=== PATIENT | female | born 1955 | race Caucasian/White ===

== ENCOUNTER → 2019-04-28 | Outpatient (CLI) | payer BC ==
--- NOTE | 2019-04-28 13:20 | REP ---
MR Brain without contrast HISTORY: Tension headache COMPARISON : None Several punctate areas of increased signal intensity on T2-weighted images are present in the periventricular and subcortical white matter. This represents small-vessel ischemic disease. There is no intraparenchymal hemorrhage, infarct, mass or midline shift. The ventricular system and cortical sulci are dilated consistent with minimal volume loss. There is no extra cerebral collection. The sinuses are clear. IMPRESSION: 1. Minimal small vessel ischemic disease. 2. Minimal volume loss. Electronically Signed by Nayan Hamilton MD 04/28/2019 01:11 P
--- NOTE | 2019-04-28 13:55 | REP ---
MR CERVICAL SPINE WITHOUT CONTRAST: HISTORY: Cervicalgia. The patient is status post C3 to C7 anterior spinal fusion. Metal hardware and bone graft material are present. Posterior osteophytes are present at the C3-4 level. There is minimal spinal cord compression. The C3 neural foramina are patent. Posterior osteophytes are present at the C4-5 level. There is moderate effacement of the thecal sac without spinal cord compression. The C4 neural foramina are patent. Posterior osteophytes are present at the C5-6 level. There is minimal spinal cord compression. The C5 neural foramina are patent. Posterior osteophytes are present at the C6-7 level. There is moderate effacement of the thecal sac without spinal cord compression. The C6 neural foramina are patent. A disc bulge is present at the C7-T1 level. There is moderate effacement of the thecal sac without spinal cord compression. Bilateral uncinate process and facet hypertrophy are present. These findings produce mild narrowing of the C7 neural foramina. Heterogeneous increased signal intensity on T2-weighted images is present in the spinal cord at the C6-7 level. The spinal cord is small in size. This represents myelomalacia. A focal area of decreased signal intensity on T2-weighted images is present in the spinal cord at the C7-T1 level. This most likely represents hemosiderin. A 1.5 mm focus of increased signal intensity on T2-weighted images is present in the spinal cord at the T1 level. This represents cystic myelomalacia or a very small syrinx. Normal signal intensity is present in the visualized vertebral bodies. There is no subluxation. IMPRESSION: 1. The patient is status post C3 to C7 anterior spinal fusion. There is anatomic alignment. 2. There is cervical spondylosis at the C3-4 through C7-T1 levels most significant at the C3-4 and C5-6 levels where there is minimal spinal cord compression. 3. There is focal myelomalacia at the C6-7 level. A small focus of increased signal intensity on T2-weighted images is present at the T1 level. This represents cystic myelomalacia or a very small syrinx. Electronically Signed by Nayan Hamilton MD 04/28/2019 02:02 P
== END ==
LOC: M RAD 10:34
PROVIDERS: ATTEND Psychiatry & Neurology Neurology
DX: R51 Headache (principal); M54.2 Cervicalgia

== ENCOUNTER 2019-06-27 18:24 | Emergency (ER) | payer BC ==
[~2019-06-27] VITALS: Ht 154.9 cm; Wt 84.1 kg
[2019-06-27] MEDS ORDERED: BUPR75TA5 PO (18:47)
[2019-06-27] MEDS ORDERED: BACL10TA2 PO (18:47)
[2019-06-27] MEDS ORDERED: SENN1TAB8 PO (18:47)
[2019-06-27] MEDS ORDERED: CYMB60CA3 PO (18:47)
[2019-06-27] MEDS ORDERED: NITR2OI TOP (18:47)
[2019-06-27] MEDS ORDERED: MELA5CAP2 PO (18:47)
[2019-06-27] MEDS ORDERED: MIDO5TA PO (18:47)
[2019-06-27] MEDS ORDERED: PEPC1TAB5 PO (18:47)
[2019-06-27] MEDS ORDERED: D 101000 PO (18:47)
[2019-06-27] MEDS ORDERED: FLON1SPR NARES (18:47)
[2019-06-27] MEDS ORDERED: LORA-674 PO (18:47)
[2019-06-27] MEDS ORDERED: ATIV1TAB10 PO (18:47)
[2019-06-27] MEDS ORDERED: TROS20TA3 PO (18:47)
[2019-06-27] MEDS ORDERED: MYRB25TA PO (18:47)
[2019-06-27] MEDS ORDERED: BACL1TAB8 PO (18:47)
[2019-06-27] MEDS ORDERED: ENUL10SO PO (18:47)
[2019-06-27 21:24] LABS: BASO # 0.1 10^3/uL (0.0-0.2); BASO % 0.6 % (0.0-1.0); EOS # 0.3 10^3/uL (0.0-0.50); EOS % 2.2 % (0.0-3.0); HEMATOCRIT 43.1 % (36.0-47.0); HEMOGLOBIN 14.2 g/dl (12.0-15.5); LYMPH # 2.7 10^3/uL (1.5-4.5); LYMPH % 21.4 % (24.0-44.0); MEAN CORPUSCULAR HEMOGLOBIN 31.9 pg (27.0-33.0); MEAN CORPUSCULAR HGB CONC 32.9 g/dl (32.0-36.5); MEAN CORPUSCULAR VOLUME 96.9 fl (80.0-96.0); NEUTROPHILS # 8.5 10^3/uL (1.8-7.7); NEUTROPHILS % 67.4 % (36.0-66.0); PLATELET COUNT, AUTOMATED 363 10^3/uL (150-450); RED BLOOD COUNT 4.45 10^6/uL (4.00-5.40); WHITE BLOOD COUNT 12.6 10^3/uL (4.0-10.0)
[2019-06-27] MEDS ORDERED: ISOVUE-370 76% 100ML VIAL (Q9967) As Ordered ONE (21:31)
[2019-06-27 21:39] LABS: ALBUMIN 3.7 GM/DL (3.2-5.2); ALT/SGPT 25 U/L (12-78); BILIRUBIN,DIRECT < 0.1 MG/DL (0.0-0.2); BILIRUBIN,TOTAL 0.2 MG/DL (0.2-1.0); TOTAL PROTEIN 7.4 GM/DL (6.4-8.2)
--- NOTE | 2019-06-27 22:31 | REPVR ---
EXAM: CT Abdomen and Pelvis With Contrast EXAM DATE/TIME: 06/27/2019 10:05 PM CLINICAL HISTORY: 63 years old, female; Constipation; Prior surgery; Additional info: No bm, ileus vs obs TECHNIQUE: Imaging protocol: Axial computed tomography images of the abdomen and pelvis with intravenous contrast. Coronal and sagittal reformatted images were created and reviewed. Radiation optimization: All CT scans at this facility use at least one of these dose optimization techniques: automated exposure control; mA and/or kV adjustment per patient size (includes targeted exams where dose is matched to clinical indication); or iterative reconstruction. Contrast material: ISOVUE 370;Contrast volume: 100 ml;Contrast route: IV; COMPARISON: CR ABDOMEN (MIN 2 VIEW) 06/27/2019 7:33 PM FINDINGS: Lungs: Minimal bibasilar fibro-atelectatic change, greatest in the lower lobes. Liver: Normal. No mass. Gallbladder and bile ducts: Status post cholecystectomy. Mild biliary dilation which is attributed to prior cholecystectomy and is likely physiologic. CBD measures 11 mm and tapers to the ampulla. Pancreas: Normal. No ductal dilation. Spleen: Normal. No splenomegaly. Adrenals: Normal. No mass. Kidneys and ureters: Normal. No hydronephrosis. Stomach and bowel: Moderate colonic stool and gas which is proximally. Slight wall thickening and pericolonic induration of the distal sigmoid and rectum with slight distention of the rectum measuring 6.2 cm in its lateral dimension. Appendix: A normal appendix is seen. Intraperitoneal space: Normal. No free air. No significant fluid collection. Vasculature: Normal. No abdominal aortic aneurysm. Lymph nodes: Normal. No enlarged lymph nodes. Bladder: Unremarkable as visualized. Reproductive: Unremarkable as visualized. Bones/joints: The sigmoid is mildly elongated extending cephalad to the L1-L2 level and nearly to the stomach. Soft tissues: Unremarkable. IMPRESSION: 1. Slight wall thickening and surrounding induration of the distal sigmoid and rectum suggesting nonspecific distal colitis or proctitis. 2. Mildly elongated or redundant sigmoid which extends cephalad nearly to the stomach and is adjacent to the transverse colon. 3. Status post cholecystectomy. Electronically signed by: Jase Pa On 06/27/2019 22:31:24 PM
[2019-06-27] MEDS ORDERED: CIPROFLOXACIN 500 MG TAB PO ONE (23:30)
[2019-06-27] MEDS ORDERED: metroNIDAZOLE (FLAGYL) 500 MG TAB PO ONE (23:30)
[2019-06-28] MEDS ORDERED: FLAG500T PO (00:04)
[2019-06-28] MEDS ORDERED: CIPR-249 PO (00:04)
[2019-06-28 00:22] VITALS: BP 125/81
--- NOTE | 2019-06-28 09:15 | REP ---
REASON: Abdominal pain and clinical constipation. AP and cross table lateral views were obtained. Multiple gas filled small bowel loops are present there is content seen throughout the colon. Gas and stool is seen in the rectum. The organ silhouettes are obscured. There is no evidence of free air. IMPRESSION:Findings suggestive of an ileus. There is a large amount of colonic content. Which could be correlated clinically with constipation. Electronically Signed by Eliud Lang DO 06/28/2019 11:21 A
--- NOTE | 2019-06-28 15:00 | ED PDOC ---
Post-Departure Follow-Up dr beckett faxed formal report of ct abd/p for fu Obed Younger MD Jun 28, 2019 15:00
== END 2019-06-28 00:30 | disposition home or self-care (01) ==
LOC: M ED 18:24
DX: K52.9 Noninfective gastroenteritis and colitis, unspecified (principal); K56.7 Ileus, unspecified; K56.41 Fecal impaction; G90.4 Autonomic dysreflexia; K21.9 Gastro-esophageal reflux disease without esophagitis; I95.9 Hypotension, unspecified; F41.9 Anxiety disorder, unspecified; F32.9 Major depressive disorder, single episode, unspecified; E04.1 Nontoxic single thyroid nodule; Z88.0 Allergy status to penicillin; Z88.8 Allergy status to other drugs, medicaments and biological substances; Z91.048 Other nonmedicinal substance allergy status; Z79.899 Other long term (current) drug therapy
CPT/HCPCS: 74019; 74177; 80047; 80076; 81001; 85025; 99284; Q9967

== ENCOUNTER → 2019-08-29 | Outpatient (REF) ==
[~2019-08-29] MED LIST: ATIV1TAB10 PO; BACL10TA2 PO; BACL1TAB8 PO; BENA25CA4 PO; BUPR75TA5 PO; CIPR-249 PO; CYMB60CA3 PO; D 101000 PO; ENUL10SO PO; FLAG500T PO; FLON1SPR NARES; LORA-674 PO; MELA5CAP2 PO; MIDO5TA PO; MYRB25TA PO; NITR2OI TOP; PEPC1TAB5 PO; PRED20TA PO; SENN1TAB8 PO; TROS20TA3 PO
[2019-08-29 18:15] LABS: COLLAGEN EPINEPHRINE 83 SECONDS (74-162)
== END ==
LOC: M LAB REF 13:52
DX: R23.3 Spontaneous ecchymoses (principal)

== ENCOUNTER 2019-09-05 21:34 | Emergency (ER) | payer BC, MEDICAID ==
[~2019-09-05] VITALS: Ht 154.9 cm; Wt 86.4 kg
[~2019-09-05 21:34] MED LIST changes: -BENA25CA4 PO; -PRED20TA PO
[2019-09-05] MEDS ORDERED: LORazepam 2 MG/ML VIAL (J2060) IV STA (21:49)
[2019-09-05] MEDS ORDERED: methylPREDNISolone INJ 125 MG/2 ML VIAL (J2930) IV ONE (22:00)
[2019-09-05] MEDS ORDERED: diphenhydrAMINE INJ 50MG/ML VIAL (J1200) IV ONE (22:00)
[2019-09-05] MEDS ORDERED: NS 1,000 ML IV ONE (22:00)
[2019-09-05] MEDS ORDERED: LABETALOL HCL 100 MG/20 ML VIAL IV STA (22:52)
[2019-09-05] MEDS ORDERED: METOCLOPRAMIDE INJ 10MG/2ML VIAL (J2765) IV ONE (23:00)
[2019-09-05] MEDS ORDERED: KETOROLAC 30 MG/ML VIAL (J1885) IV ONE (23:00)
[2019-09-05 23:06] VITALS: BP 170/110
[2019-09-05] MEDS ORDERED: MORPHINE 4 MG/ML 1ML VIAL/SYRINGE (J2270) IV ONE (23:45)
[2019-09-05] MEDS ORDERED: CIPR-249 PO (23:50)
[2019-09-05] MEDS ORDERED: PRED20TA PO (23:50)
[2019-09-05] MEDS ORDERED: BENA25CA4 PO (23:50)
[2019-09-06] MEDS ORDERED: hydrOXYzine 25 MG TAB PO ONE
[2019-09-06 01:17] VITALS: BP 180/94
== END 2019-09-06 01:32 | disposition home or self-care (01) ==
LOC: M ED 21:34
DX: R21 Rash and other nonspecific skin eruption (principal); T36.8X5A Adverse effect of other systemic antibiotics, initial encounter; X58.XXXA Exposure to other specified factors, initial encounter; Y92.89 Other specified places as the place of occurrence of the external cause; I95.9 Hypotension, unspecified; G90.4 Autonomic dysreflexia; K21.9 Gastro-esophageal reflux disease without esophagitis; Z79.899 Other long term (current) drug therapy; Z88.0 Allergy status to penicillin; Z88.8 Allergy status to other drugs, medicaments and biological substances; Z91.048 Other nonmedicinal substance allergy status
CPT/HCPCS: 94760; 96361; 96374; 96375; 99284; J1200; J1885; J2060; J2270; J2765; J2930

== ENCOUNTER → 2019-09-13 | Outpatient (CLI) | payer BC, MEDICAID ==
[~2019-09-13] MED LIST changes: +BENA25CA4 PO; +PRED20TA PO
--- NOTE | 2019-09-14 12:51 | REP ---
Clinical: Abdominal pain. Technique: Two supine views of the abdomen and pelvis. Findings: The bowel gas pattern is relatively nonspecific although mild fecal stasis and possible constipation cannot be excluded. Evidence of prior cholecystectomy. Skeletal structures demonstrate age-related changes. Impression: Possible mild fecal stasis and constipation Electronically Signed by Pb Leos MD 09/14/2019 12:42 P
== END ==
LOC: M RAD 14:39
PROVIDERS: ATTEND Neurological Surgery
DX: K59.2 Neurogenic bowel, not elsewhere classified (principal)

== ENCOUNTER → 2019-09-20 | Outpatient (CLI) | payer BC, MEDICAID ==
--- NOTE | 2019-09-25 15:13 | REP ---
THYROID SONOGRAPHY: HISTORY: Multinodular goiter. Comparison thyroid sonography is retrieved from July 25, 2018 done at an outside facility. I do not have a report of this prior study. SONOGRAPHIC FINDINGS: Thyroid isthmus is 0.6 cm thick. Right lobe dimensions are 6.7 x 2.5 x 2.6 cm. The left thyroid lobe measures 6.6 x 2.1 x 2.2 cm. There is a solid complex nodule in each lobe of the thyroid. On the right this nodule measures 4.7 x 2.4 x 3.9 cm. The nodule posteriorly in the left mid lobe measures 5.5 x 1.9 x 2.1 cm. The left-sided nodule appears to be larger compared to the prior sonographic images. Prior study showed a 1 cm hypoechoic complex cystic nodule just to the right of midline adjacent to the isthmus. This is not seen on today's study. The overall dimensions of the thyroid gland and isthmus are similar to the prior imaging study. No extrathyroidal mass or adenopathy is observed. IMPRESSION: There is a large nodule in the left lobe which appears to be larger than on the prior study. There is also a large right-sided nodule which appears essentially unchanged. These are solid predominantly by ultrasound. Findings consistent with multinodular goiter. Electronically Signed by Cabrera Rangel MD 09/25/2019 03:33 P
== END ==
LOC: M RAD 12:48
PROVIDERS: ATTEND Internal Medicine
DX: E04.2 Nontoxic multinodular goiter (principal)

== ENCOUNTER → 2019-10-09 | Outpatient (CLI) | payer BC, MEDICAID ==
[2019-10-09 17:50] LABS: APPEARANCE, URINE HAZY (CLEAR); BACTERIA, URINE AUTO 3+ (NEGATIVE); BILIRUBIN, URINE AUTO NEGATIVE (NEGATIVE); BLOOD, URINE BLOOD 2+ (NEGATIVE); COLOR, URINE STRAW (YELLOW); GLUCOSE, URINE (UA) AUTO 1+ mg/dL (NEGATIVE); KETONE, URINE AUTO NEGATIVE (NEGATIVE); LEUKOCYTE ESTERASE, URINE AUTO 2+ (NEGATIVE); MUCUS, URINE SMALL (NEGATIVE); NITRITE, URINE AUTO NEGATIVE (NEGATIVE); PROTEIN, URINE AUTO NEGATIVE (NEGATIVE); RBC, URINE AUTO 1 /HPF (0-3); SPECIFIC GRAVITY URINE AUTO 1.003 (1.002-1.035); SQUAMOUS EPITHELIAL CELL UR AU 0 /HPF (0-6); UROBILINOGEN, URINE AUTO 0.2 mg/dL (0.0-2.0); WBC, URINE AUTO 40 /HPF (0-3)
== END ==
LOC: M LAB 16:45
DX: N31.9 Neuromuscular dysfunction of bladder, unspecified (principal)

== ENCOUNTER → 2020-08-05 | Outpatient (CLI) | payer MEDICARE, BC, MEDICAID ==
[~2020-08-05] MED LIST changes: +SENN-80 PO; -SENN1TAB8 PO
--- NOTE | 2020-08-19 17:21 | REP ---
THYROID SONOGRAPHY HISTORY: Multinodular goiter. COMPARISON: 09/20/2019. FINDINGS: Thyroid isthmus is 0.8 cm thick. Right lobe dimensions by todays sonography are 6.5 x 1.8 x 2.7 cm. Left thyroid lobe measurements are 6.6 x 2.5 x 1.9 cm. These measurements are essentially unchanged. Solid nodules are seen bilaterally. The largest nodule is in the lower pole of the right thyroid lobe measures 4.5 x 2.6 x 2.8 cm today. This is unchanged. Adjacent to this, there is a 2.2 x 1.3 x 2.4 cm solid nodule. In the lower pole on the left, there is a predominantly solid nodule measuring 4.7 x 1.7 x 2.7 cm. This is felt to be essentially unchanged as well. IMPRESSION: Multinodular goiter. MTDD
== END ==
LOC: M RAD 13:00
PROVIDERS: ATTEND Internal Medicine
DX: E04.2 Nontoxic multinodular goiter (principal)

== ENCOUNTER → 2020-09-25 | Outpatient (CLI) | payer MEDICARE, BC, MEDICAID ==
[~2020-09-25] MED LIST changes: +PROHANCE 279.3MG/ML 15ML VIAL As Ordered ONE; +PROHANCE 279.3MG/ML 5ML VIAL As Ordered ONE
--- NOTE | 2020-09-26 09:32 | REP ---
INDICATION: TETRAPLEGIA. COMPARISON: Comparison MRI study is from April 28, 2019.. TECHNIQUE: Sagittal and axial T1 and T2-weighted scans are acquired in the usual fashion with and without fat saturation. Sequences include spin echo, turbo spin-echo, and STIR imaging sequences. Gadolinium enhancement dose is 18 mL of intravenous ProHance. FINDINGS: There is a somewhat heterogeneous goiter again noted unchanged. The patient is status post ventral discectomy and fusion plating C3 through C7. Magnetic field susceptibility artifact is seen emanating from the fusion hardware through the ventral aspect of the vertebral column at these levels. There is no evidence of disc protrusion or cord compression at C2-3. No foraminal narrowing is seen at C2-3. At C3-4, there is facet hypertrophy. There is evidence of low T1 low T2 signal intensity material compressing the ventral aspect of the cord at the C3-4 and along the C4 vertebral body consistent with a disc osteophyte complex. This is unchanged from the 2019 prior study. Cord signal intensity is normal at this level. At C4-C5, there is no evidence of cord compression or foraminal narrowing. At C5-C6, there is similar disc osteophyte complex compressing the ventral margin of the cord. It is possible and some of this apparent cord compression may be field susceptibility artifact and signal dropout from the metallic fusion hardware. There is central canal stenosis at C5-6, midline AP dimension of the thecal sac at this level is 6 mm. No abnormal cord signal is seen at this level. The appearance of this disc osteophyte complex is unchanged from April 28, 2019. At C6-C7, there is evidence of a ventral cord compression from disc osteophyte complex indenting the ventral margin of the cord. This appears to be unchanged. This is just above the cord lesion noted previously. Abnormal intramedullary cord signal intensity is noted in the right side of the cervical cord consistent with myelomalacia at the C6 vertebral body. This is not visible previously. At and below the C6-7 disc level, there is extensive T2 hyperintense signal throughout the substance of the cord and there is evidence of marked focal cord atrophy at this level. The abnormal signal intensity extends over a craniocaudal span of 15 mm today, previously 12 mm. The bottom of this severe myelomalacia lesion is at mid C7 as before. There is ligamentum flavum hypertrophy contributing to canal narrowing bilaterally at C6-7. No disc protrusion or cord compression is seen at C7-T1. The previously noted small focal intramedullary hyperintensity in the T1 vertebral body is not seen today. Post gadolinium enhanced T1 weighted scans show no intrasubstance gadolinium enhancement within the cord. No other significant gadolinium enhancement is apparent. IMPRESSION: Severe focal myelomalacia and focal cord atrophy at the C6-7 level. The craniocaudal span of the T2 hyperintense lesion in the intramedullary substance of the cord is a bit more extensive. There is a new area of increased signal intensity in the right side of the cervical cord at C6. There does not appear to be evidence of increased cord compression at any level. Status post extensive cervical spine ventral fusion C3 through C7. <Electronically signed by David Rangel > 09/26/20 0922
--- NOTE | 2020-09-26 09:42 | REP ---
INDICATION: TETRAPLEGIA. COMPARISON: None. TECHNIQUE: Sagittal and axial T1 and T2-weighted scans are acquired in the usual fashion with and without fat saturation. Sequences include spin echo, turbo spin-echo, and STIR imaging sequences. 18 mL of intravenous ProHance was administered and post gadolinium enhanced imaging is acquired. FINDINGS: Thoracic vertebral body heights are preserved. There is a minimal scoliotic curvature. Alignment is otherwise normal. Magnetic field susceptibility artifact is seen at the top edge of the imaging field at C7 from fusion hardware. A extensive focal cord atrophy/myelomalacia lesion is seen at C6-7. The thoracic spinal cord is normal in course and caliber and signal intensity on T1 and T2 weighted scans. No thoracic cord compression is seen. There is moderate degenerative disc spurring along the anterior margin of the thoracic canal. These osteophytes are predominantly right-sided. There is right posterior disc bulge at at T8-T9. This does not contact the cord. No other thoracic disc protrusion is appreciated. No evidence of neural foraminal narrowing is seen. There is no focus of intramedullary and contrast enhancement in the thoracic cord. Postcontrast T1 weighted fat sat images show no significant gadolinium enhancement. IMPRESSION: Diffuse degenerative disc disease with anterior osteophyte formation. No cord compressive lesion or foraminal ladder narrowing seen. The thoracic cord is normal in course and caliber. <Electronically signed by David Rangel > 09/26/20 1979
== END ==
LOC: M RAD 15:20
DX: M62.830 Muscle spasm of back (principal)
CPT/HCPCS: 72156; 72157; A9576

== ENCOUNTER → 2021-06-12 | Outpatient (CLI) | payer MEDICARE, MEDICAID ==
[~2021-06-12] MED LIST changes: -PROHANCE 279.3MG/ML 15ML VIAL As Ordered ONE; -PROHANCE 279.3MG/ML 5ML VIAL As Ordered ONE
--- NOTE | 2021-06-12 15:26 | REP ---
INDICATION: MULTI NODULAR GOITER. COMPARISON: 08/05/2020. TECHNIQUE: Real-time sonographic evaluation of thyroid performed. FINDINGS: Both lobes are again enlarged as seen on prior study, and diffusely heterogeneous in echotexture. Right lobe measures 6.3 x 3.6 x 2.8 cm and left lobe 7.0 x 2.5 x 2.2 cm. There are multiple nodules present. A dominant nodule in the right lower pole measures 5.1 x 2.9 x 2.7 cm similar to prior studies. A nodule in the isthmus measures 3.2 x 2.0 x 2.6 cm, similar to the prior exam. A dominant nodule in the left lower pole measures 5.0 x 2.2 x 2.2 cm, similar to the prior exam. IMPRESSION: Essentially stable thyromegaly and bilateral solid nodules compared to prior studies. <Electronically signed by Giuseppe Collins > 06/12/21 1529
== END ==
LOC: M RAD 13:26
PROVIDERS: ATTEND Internal Medicine
DX: E04.2 Nontoxic multinodular goiter (principal)